=== PATIENT | male | born 1995 | race Caucasian/White ===

== ENCOUNTER 2021-04-06 09:04 | Outpatient (CLI) | payer SELFPAY ==
--- NOTE | 2021-04-06 09:10 | RAD_ITS ---
History: LARYNGEAL FOREIGN BODY Soft tissues of the neck: Findings: AP and lateral views of the soft tissues of the neck demonstrate the airway to be intact. Epiglottis and soft palate are normal. Precervical soft tissues are normal. No radiopaque foreign body. IMPRESSION: Normal soft tissues of the neck. at 1035 Reported and signed by: Leon Mccoy MD Electronically Signed: Leon Mccoy MD at 10:33 EST Tel , Service support , RAD/Neck for Soft Tissue
== END 2021-04-06 23:59 | disposition short-term general hospital (02) ==
PROVIDERS: Referring Provider Otolaryngology; Visit Provider Otolaryngology
DX: T17.200A Unspecified foreign body in pharynx causing asphyxiation, initial encounter (principal); X58.XXXA Exposure to other specified factors, initial encounter
CPT/HCPCS: 70360